=== PATIENT | female | born 1985 | race African-American/Black ===

== ENCOUNTER 2020-01-11 12:02 | Emergency (ER) | payer SELFPAY ==
[2020-01-11 12:08] VITALS: BP 135/79
[2020-01-11] MEDS ORDERED: DIPHENHYDRAMINE HCL 25 MG CAPSULE PO ONE (12:37)
--- NOTE | 2020-01-11 14:26 | ER Document Report ---
HPI - HPI Time Seen by Provider: 01/11/20 12:33 Pain Level: 2 Context: Patient is a 34-year-old female with no past medical history presents emergency department with a chief complaint of a jellyfish sting. This happened just prior to arrival. Patient was able to wash off with the salt water from the ocean. Patient states that there is a burning sensation to her left foot and left posterior leg. Denies any other symptoms. Denies any shortness of breath, difficulty breathing. - CONSTITUTIONAL Constitutional: DENIES: Fever, Chills - EENT EENT: DENIES: Sore Throat, Ear Pain, Eye problems - NEURO Neurology: DENIES: Headache, Weakness, Vision blurred, Dizzinesss / Vertigo - CARDIOVASCULAR Cardiovascular: DENIES: Chest pain - RESPIRATORY Respiratory: DENIES: Trouble Breathing, Coughing - GASTROINTESTINAL Gastrointestinal: DENIES: Abdominal Pain, Black / Bloody Stools - URINARY Urinary: DENIES: Dysuria, Urgency, Frequency - REPRODUCTIVE Reproductive: DENIES: : - MUSCULOSKELETAL Musculoskeletal: REPORTS: Extremity pain - LLE burning Past Medical History - General Information source: Patient - Social History Smoking Status: Never Smoker Chew tobacco use (# tins/day): No Frequency of alcohol use: Occasional Drug Abuse: None Family History: Reviewed & Not Pertinent Patient has homicidal ideation: No Vertical Provider Document - CONSTITUTIONAL Agree With Documented VS: Yes Exam Limitations: No Limitations General Appearance: No Apparent Distress - HEENT HEENT: Atraumatic, Normocephalic, PERRLA - NECK Neck: Normal Inspection - RESPIRATORY Respiratory: No Respiratory Distress - CARDIOVASCULAR Cardiovascular: Regular Rate, Regular Rhythm Pulses: Normal: Posterior tibial, Dorsalis pedis - MUSCULOSKELETAL/EXTREMETIES Musculoskeletal/Extremeties: FROM, Tender - Left posterior leg and dorsal left foot, No Edema - NEURO Level of Consciousness: Awake, Alert, Appropriate Motor/Sensory: No Motor Deficit, No Sensory Deficit - DERM Integumentary: Warm, Dry, Rash - Dorsal left foot and left posterior thigh Course - Re-evaluation Re-evalutation: 01/11/20 14:24 Patient states that she feels better after receiving Benadryl. I did not appreciate any stingers in the patient's skin. Advised patient take Benadryl. Follow-up precautions were given. Verbal discharge instructions were given to the patient. They verbalized understanding. They are stable for discharge. - Vital Signs Vital signs: Temp Pulse Resp BP Pulse Ox 98.2 F 90 14 135/79 H 97 01/11/20 12:08 01/11/20 12:08 01/11/20 12:08 01/11/20 12:08 01/11/20 12:08 Discharge - Discharge Clinical Impression: Jellyfish sting Qualifiers: Encounter type: initial encounter Injury intent: accidental or unintentional Qualified Code(s): T63.621A - Toxic effect of contact with other jellyfish, accidental (unintentional), initial encounter Condition: Stable Disposition: HOME, SELF-CARE Additional Instructions: You are seen today in the emergency department for jellyfish sting. Continue to take Benadryl 25 to 50 mg every 4-6 hours as needed for itchiness. Continue hot water compresses or hot water soaks in the bathtub. You can take ibuprofen for pain relief. Follow-up with a primary care provider as needed. Turn to the emergency department immediately if you develop shortness of breath, difficulty breathing, or any other symptoms that are worrisome to you.
== END 2020-01-11 14:30 | disposition home or self-care (01) ==
LOC: ER 12:02
DX: T63.621A Toxic effect of contact with other jellyfish, accidental (unintentional), initial encounter (principal)
CPT/HCPCS: 99282